=== PATIENT | female | born 1995 | race Caucasian/White ===

== ENCOUNTER 2018-06-19 22:08 | Inpatient (IN) | payer OTHER ==
[~2018-06-19] VITALS: Ht 167.6 cm; Wt 63.0 kg
[~2018-06-19 22:08] MED LIST: PENICILLIN V P250 MG PO
--- NOTE | 2018-06-21 08:30 | PR ---
[facility] [address] [facility] [place] [address] Signed PP Progress Notes Datetime Report Generated by JOAQUIN: 06/21/2018 08:30 SUBJECTIVE: [id number] Pain: Within normal limits Vital Signs: [id number] Vital Signs: Reviewed; Within Normal Limits EXAM: [id number] Cardiovascular: Not Done Respiratory: Not Done Abdomen/Uterus: Abnormal Lochia: Normal Vulva/Perineum: Not Done Breasts: Not Done CVA Tenderness: Not Done Extremities: Normal Incision: Not Applicable Progress: Normal Exam Comments: Fundus firm, NT @ U-2. H/H 10.1/29.7, WBC 10.4, plat 158k IMPRESSION/PLAN/PROCEDURES: [id number] Impression: Normal progression Plan: Continue present management Progress Notes: Overall doing well. Will work on breast feeding with probable D/C home tomorrow. Signing Physician: Diana Hilliard MD Copies: ~ *Electronically Signed* 06/21/18829 DIANA HILLIARD MD PATIENT NAME: NICO RIVERA PROGRESS NOTE DATE OF : [birth year] PHYSICIAN: DIANA HILLIARD MD RPT #: [id number] REPORT IS CONFIDENTIAL AND NOT TO BE RELEASED WITHOUT AUTHORIZATION
--- NOTE | 2018-06-22 08:53 | PR ---
[facility] [address] [facility] [place], [place] [address] Signed PP Progress Notes Datetime Report Generated by CPN: 06/22/2018 08:53 SUBJECTIVE: [id number] Pain: Within normal limits Vital Signs: [id number] Vital Signs: Reviewed; Within Normal Limits EXAM: [id number] Cardiovascular: Not Done Respiratory: Not Done Abdomen/Uterus: Abnormal Lochia: Normal Vulva/Perineum: Not Done Breasts: Not Done CVA Tenderness: Not Done Extremities: Normal Incision: Not Applicable Progress: Normal Exam Comments: Fundus firm, NT @ U-2. IMPRESSION/PLAN/PROCEDURES: [id number] Impression: Normal progression Plan: Discharge Procedures: Varicella Progress Notes: Doing well. She is ready for D/C. Signing Physician: Diana Hilliard MD Copies: ~ *Electronically Signed* 06/22/18 0853 DIANA HILLIARD MD PATIENT NAME: NICO RIVERA PROGRESS NOTE DATE OF : [birth year] PHYSICIAN: DIANA HILLIARD MD RPT #: [id number] REPORT IS CONFIDENTIAL AND NOT TO BE RELEASED WITHOUT AUTHORIZATION
== END 2018-06-22 12:30 | disposition home or self-care (01) | DRG 807 ==
LOC: FBCO 22:08 → FBC 22:40
PROVIDERS: ADMIT Obstetrics & Gynecology
PROC: 10E0XZZ Delivery of Products of Conception, External Approach (ICD-10-PCS; principal; 2018-06-20)
PROC: 0KQM0ZZ Repair Perineum Muscle, Open Approach (ICD-10-PCS; 2018-06-20)
PROC: 10907ZC Drainage of Amniotic Fluid, Therapeutic from Products of Conception, Via Natural or Artificial Opening (ICD-10-PCS; 2018-06-20)
PROC: 00HU33Z Insertion of Infusion Device into Spinal Canal, Percutaneous Approach (ICD-10-PCS; 2018-06-20)
PROC: 3E0R3NZ Introduction of Analgesics, Hypnotics, Sedatives into Spinal Canal, Percutaneous Approach (ICD-10-PCS; 2018-06-20)
PROC: 3E0134Z Introduction of Serum, Toxoid and Vaccine into Subcutaneous Tissue, Percutaneous Approach (ICD-10-PCS; 2018-06-22)
DX: O99.334 Smoking (tobacco) complicating childbirth (principal); Z37.0 Single live birth; Z3A.39 39 weeks gestation of pregnancy; F17.210 Nicotine dependence, cigarettes, uncomplicated; O99.324 Drug use complicating childbirth; F12.90 Cannabis use, unspecified, uncomplicated; Z86.19 Personal history of other infectious and parasitic diseases; O75.89 Other specified complications of labor and delivery; O70.1 Second degree perineal laceration during delivery; Z23 Encounter for immunization
CPT/HCPCS: 01922; 36415; 85027; 90716; J2590; J3010; J7120

== ENCOUNTER 2019-07-04 11:06 | Emergency (ER) | payer OTHER ==
[~2019-07-04] VITALS: Ht 167.6 cm; Wt 63.0 kg
== END 2019-07-04 11:22 | disposition home or self-care (01) ==
LOC: ED 11:06
DX: N64.4 Mastodynia (principal)

== ENCOUNTER 2020-11-03 13:03 | Emergency (ER) | payer OTHER ==
[~2020-11-03] VITALS: Ht 167.6 cm; Wt 63.0 kg
[2020-11-03] MEDS ORDERED: BACTRIM DS TAB1 EACH PO (13:46)
== END 2020-11-03 14:06 | disposition home or self-care (01) ==
LOC: ED 13:03
DX: L02.412 Cutaneous abscess of left axilla (principal); Z88.8 Allergy status to other drugs, medicaments and biological substances
CPT/HCPCS: 99282

== ENCOUNTER 2021-12-11 00:16 | Inpatient (IN) | payer OTHER ==
[~2021-12-11] VITALS: Ht 167.6 cm; Wt 64.4 kg
[~2021-12-11 00:16] MED LIST changes: +BACTRIM DS TAB1 EACH PO
--- NOTE | 2021-12-11 02:08 | PR ---
[facility] [address] [facility] [place], [place] [address] Signed Progress Notes IP Datetime Report Generated by CPN: 12/11/2021 02:08 PROGRESS NOTES: [id number] Impression: Normal Progression of Labor Procedures: Artificial ROM Plan: Continue Present Management; Anticipate Vaginal Delivery VITAL SIGNS: [id number] Vital Signs: Reviewed; Within Normal Limits EXAM: [id number] Dilatation: 9.0 Effacement: 90 Station: 1 Contractions: not picking up MEMBRANES: [id number] Membranes Status: Ruptured ROM Note: AROM by Dr. Bar Comments: Comfortable with Intrathecal, expect to be able to start pushing soon FETUS A: [id number] FHR Baseline: 150 Variability: Moderate 6-25bpm Presentation: Vertex FETUS B: [id number] Signing Physician: Dimitri Bar MD Copies: ~ *Electronically Signed* 12/11/21 0208 DIMITRI BAR MD PATIENT NAME: NICO RIVERA PROGRESS NOTE DATE OF : [birth year] PHYSICIAN: DIMITRI BAR MD RPT #: [id number] REPORT IS CONFIDENTIAL AND NOT TO BE RELEASED WITHOUT AUTHORIZATION
--- NOTE | 2021-12-11 02:46 | PR ---
[facility] [address] [facility] [place], [place] [address] Signed Progress Notes IP Datetime Report Generated by CPN: 12/11/2021 02:46 PROGRESS NOTES: [id number] Impression: Normal Progression of Labor Procedures: Artificial ROM Plan: Continue Present Management; Anticipate Vaginal Delivery VITAL SIGNS: [id number] Vital Signs: Reviewed; Within Normal Limits EXAM: [id number] Dilatation: 9.0 Effacement: 90 Station: 1 Contractions: not picking up MEMBRANES: [id number] Membranes Status: Ruptured ROM Note: AROM by Dr. Bar Comments: Still comfmortable, hopefully will be able to push soon. FETUS A: [id number] FHR Baseline: 150 Variability: Moderate 6-25bpm Presentation: Vertex FETUS B: [id number] Signing Physician: Dimitri Bar MD Copies: ~ *Electronically Signed* 12/11/21 0246 DIMITRI BAR MD PATIENT NAME: NICO RIVERA PROGRESS NOTE DATE OF : [birth year] PHYSICIAN: DIMITRI BAR MD RPT #: [id number] REPORT IS CONFIDENTIAL AND NOT TO BE RELEASED WITHOUT AUTHORIZATION
--- NOTE | 2021-12-11 06:34 | PR ---
[facility] [address] [place], [place] [address] Signed PP Progress Notes Datetime Report Generated by CPN: 12/11/2021 06:34 SUBJECTIVE: [id number] Pain: Within Normal Limits Vital Signs: [id number] Vital Signs: Reviewed Notable Details: Total EBL 1350 ml (only about 150 ml the first hour PP) EXAM: Ongoing Abdomen/Uterus: Normal Lochia: Abnormal Vulva/Perineum: Normal Exam Comments: Uterus firm, minimal clots in cervix, no active bleeding at this time IMPRESSION/PLAN/PROCEDURES: [id number] Other Impression: PP Hemorrhage Progress Notes: Patient doing well first hour PP, then noted to have several episodes excessive vaginal bleeding. Already started 40 units Pitocin IV in 1 liter plus 1 gm TXA IV. Add Cytotec Suppository. Transfuse 2 units PRBC's. Check CBC, PT, PTT, Fibrinogen, CMP Start 2nd IV line. Signing Physician: Dimitri Bar MD Copies: ~ *Electronically Signed* 12/11/21 0634 DIMITRI BAR MD PATIENT NAME: NICO RIVERA PROGRESS NOTE DATE OF : [birth year] PHYSICIAN: DIMITRI BAR MD RPT #: [id number] REPORT IS CONFIDENTIAL AND NOT TO BE RELEASED WITHOUT AUTHORIZATION
--- NOTE | 2021-12-11 07:31 | PR ---
[facility] [address] [facility] [place], [place] [address] Signed PP Progress Notes Datetime Report Generated by CPN: 12/11/2021 07:31 SUBJECTIVE: [id number] Pain: Within Normal Limits Vital Signs: [id number] Vital Signs: Reviewed; Within Normal Limits Notable Details: Total EBL 1350 ml (only about 150 ml the first hour PP) EXAM: Ongoing Abdomen/Uterus: Normal Lochia: Normal Vulva/Perineum: Normal Extremities: Normal Exam Comments: uterus firm, smaller than earlier IMPRESSION/PLAN/PROCEDURES: [id number] Other Impression: Stable Plan: Continue Present Management Progress Notes: Feeling better, minimal bleeding. PT, PTT, Fibrinogen all normal. Hgb/Hct = 9.0/29.5, Plts 180 Awaiting PRBC's for transfusion. Continue with slow drip IV Pitocin (40 units in 1000 ml @ 100 ml/hr) Continue Henderson in bladder. Discussed problem and treatments, possible Bakri Balloon placemnt if excess bleeding occurs again Signing Physician: Dimitri Bar MD Copies: ~ *Electronically Signed* 12/11/21 0731 DIMITRI BAR MD PATIENT NAME: NICO RIVERA PROGRESS NOTE DATE OF : 96 PHYSICIAN: DIMITRI BAR MD RPT #: [id number] REPORT IS CONFIDENTIAL AND NOT TO BE RELEASED WITHOUT AUTHORIZATION
--- NOTE | 2021-12-11 12:48 | PR ---
[facility] [address] [facility] [place], [place] [address] Signed PP Progress Notes Datetime Report Generated by CPN: 12/11/2021 12:48 SUBJECTIVE: [id number] Pain: Within Normal Limits Vital Signs: [id number] Vital Signs: Reviewed; Within Normal Limits Notable Details: Total EBL 1350 ml (only about 150 ml the first hour PP) EXAM: Ongoing Abdomen/Uterus: Normal Lochia: Normal Vulva/Perineum: Normal Extremities: Normal Exam Comments: uterus firm, smaller than earlier IMPRESSION/PLAN/PROCEDURES: [id number] Impression: Normal Progression Other Impression: PP Hemorrhage Plan: Continue Present Management Procedures: None Progress Notes: Doing well, without complaint, received second PRBC's now. Minimal bleeding. Henderson still in place. Signing Physician: Dimitri Bar MD Copies: ~ *Electronically Signed* 12/11/21 1248 DIMITRI BAR MD PATIENT NAME: NICO RIVERA PROGRESS NOTE DATE OF : 96 PHYSICIAN: DIMITRI BAR MD RPT #: [id number] REPORT IS CONFIDENTIAL AND NOT TO BE RELEASED WITHOUT AUTHORIZATION
--- NOTE | 2021-12-12 11:31 | PR ---
[facility] [address] [facility] [place], [place] [address] Signed PP Progress Notes Datetime Report Generated by CPN: 12/12/2021 11:31 SUBJECTIVE: [id number] Pain: Within Normal Limits Nausea/Vomiting: Denies Vital Signs: [id number] Vital Signs: Reviewed; Within Normal Limits Notable Details: f/u PP Hgb/Hct = 11.3/33.1 EXAM: Ongoing Abdomen/Uterus: Normal Lochia: Normal Vulva/Perineum: Normal Extremities: Normal Exam Comments: uterus firm, smaller than earlier IMPRESSION/PLAN/PROCEDURES: [id number] Impression: Normal Progression Other Impression: PP Hemorrhage Plan: Discharge Procedures: None Other Procedures: Varicella Zoster Vaccine Progress Notes: Doing well, without complaint, minimal bleeding, tolerated transfusion well. Patient ready to go home. Signing Physician: Dimitri Bar MD Copies: ~ *Electronically Signed* 12/12/21 1131 DIMITRI BAR MD PATIENT NAME: NICO RIVERA PROGRESS NOTE DATE OF : 96 PHYSICIAN: DIMITRI BAR MD RPT #: [id number] REPORT IS CONFIDENTIAL AND NOT TO BE RELEASED WITHOUT AUTHORIZATION
== END 2021-12-12 12:05 | disposition home or self-care (01) | DRG 806 ==
LOC: FBCO 00:16 → FBC 00:28
PROVIDERS: ADMIT General Practice; ATTEND General Practice
PROC: 10E0XZZ Delivery of Products of Conception, External Approach (ICD-10-PCS; principal; 2021-12-11)
PROC: 10907ZC Drainage of Amniotic Fluid, Therapeutic from Products of Conception, Via Natural or Artificial Opening (ICD-10-PCS; 2021-12-11)
PROC: 30233N1 Transfusion of Nonautologous Red Blood Cells into Peripheral Vein, Percutaneous Approach (ICD-10-PCS; 2021-12-11)
PROC: 00HU33Z Insertion of Infusion Device into Spinal Canal, Percutaneous Approach (ICD-10-PCS; 2021-12-11)
DX: O99.324 Drug use complicating childbirth (principal); D62 Acute posthemorrhagic anemia; Z37.0 Single live birth; O72.1 Other immediate postpartum hemorrhage; Z3A.38 38 weeks gestation of pregnancy; Z20.822 Contact with and (suspected) exposure to COVID-19; F12.90 Cannabis use, unspecified, uncomplicated; O99.03 Anemia complicating the puerperium; Z67.30 Type AB blood, Rh positive; Z87.891 Personal history of nicotine dependence
CPT/HCPCS: 36415; 80053; 85025; 85027; 85384; 85610; 85730; 86850; 86900; 86901; 86922; 87502; 90716; A9270; C9803; J2001; J2405; J2590; J7121; P9016; U0003

== ENCOUNTER 2024-04-30 06:20 | Emergency (ER) | payer OTHER ==
[~2024-04-30] VITALS: Ht 167.6 cm; Wt 50.1 kg
[~2024-04-30 06:20] MED LIST changes: +ARIPIPRAZOLE5 MG PO; +DOXYCYCLINE HY100 MG PO; +FLUOXETINE HCL20 MG PO
[2024-04-30 06:58] LABS: BASOPHILS 0.8 % (0-2); EOSINOPHILS 1.2 % (0-6); HEMATOCRIT 40.2 % (35.0-50.0); HEMOGLOBIN 13.4 g/dL (12.0-18.0); LYMPHOCYTES 16.5 % (24-44); MCH 29.6 (27-36); MCHC 33.3 g/dl (30-36); MCV 89.1 fl (81-99); NEUTROPHILS 75.5 % (39-80); PLATELET COUNT 285 K/uL (140-440); RBC 4.51 M/ul (4.3-5.7); RDW 13.6 (10.5-15.0)
[2024-04-30 07:17] LABS: ALBUMIN 3.3 g/dL (3.4-5.0); ANION GAP 13.6 (7-21); BILIRUBIN, TOTAL 0.2 ng/dL (0.2-1.0); BUN/CREATININE RATIO 22.66 (6.0-28.6); CALCIUM 8.7 mg/dL (8.5-10.1); CREATININE, SERUM 0.75 mg/dL (0.55-1.02); POTASSIUM 3.6 mmol/L (3.5-5.1); PROTEIN, TOTAL 6.6 g/dL (6.4-8.2)
[2024-04-30 07:17] LABS: PH, VENOUS 7.419 (7.31-7.41)
[2024-04-30] MEDS ORDERED: NARCAN4 MG NAS (07:22)
[2024-04-30] MEDS ORDERED: NALOXONE 4 MG NASAL SPRAY #2 HOME.PACK NAS ONE (07:30)
[2024-04-30] MEDS ORDERED: SODIUM CHLORIDE 0.9% 1,000 ML IV PRN ×2 (07:45→09:00)
[2024-04-30 11:30] VITALS: BP 96/57
--- NOTE | 2024-05-01 19:16 | EKG ---
[facility] [address] [facility] [place], [place] [address] Signed Normal sinus rhythm Normal ECG No previous ECGs available Confirmed by Edmund Campos MD ([id number]) on 05/01/2024 7:16:45 PM Electronically Signed By: EDMUND CAMPOS MD 05/01/241915 PATIENT NAME: NICO RIVERA Electrocardiogram DATE OF : [birth year] PHYSICIAN: EDMUND CAMPOS MD REPORT #: [id number] REPORT IS CONFIDENTIAL AND NOT TO BE RELEASED WITHOUT AUTHORIZATION
== END 2024-04-30 11:28 | disposition home or self-care (01) ==
LOC: ED 06:20
PROVIDERS: Family Medicine
DX: T40.411A Poisoning by fentanyl or fentanyl analogs, accidental (unintentional), initial encounter (principal); R68.0 Hypothermia, not associated with low environmental temperature; Z91.048 Other nonmedicinal substance allergy status; Z87.891 Personal history of nicotine dependence; Z79.2 Long term (current) use of antibiotics
CPT/HCPCS: 36415; 71045; 80053; 80307; 82553; 82803; 83735; 84703; 85025; 93005; 93010; 99284-25; J3490; J7030